=== PATIENT | male | born 1955 | race Caucasian/White ===

== ENCOUNTER 2022-07-23 07:35 | Outpatient (CLI) | payer OTHER | END 2022-07-23 07:36 | disposition home or self-care (01) | LOC: CSHCT 07:35 | PROVIDERS: ATTEND Otolaryngology Plastic Surgery within the Head & Neck | DX: Z85.9 Personal history of malignant neoplasm, unspecified (principal); J38.01 Paralysis of vocal cords and larynx, unilateral; Z98.890 Other specified postprocedural states; J98.4 Other disorders of lung; N28.89 Other specified disorders of kidney and ureter | CPT/HCPCS: 70491; 71260; 82565 ==

== ENCOUNTER 2022-07-27 09:00 | Outpatient (CLI) | payer OTHER | END 2022-07-27 09:01 | disposition home or self-care (01) | LOC: CSHRAD 09:00 | PROVIDERS: ATTEND Otolaryngology Plastic Surgery within the Head & Neck | DX: R13.10 Dysphagia, unspecified (principal); R93.3 Abnormal findings on diagnostic imaging of other parts of digestive tract | CPT/HCPCS: 74220 ==

== ENCOUNTER 2022-08-14 09:43 | Outpatient (CLI) | payer OTHER | END 2022-08-14 09:44 | disposition home or self-care (01) | LOC: CSHRAD 09:43 | PROVIDERS: ATTEND Otolaryngology Plastic Surgery within the Head & Neck | DX: R13.11 Dysphagia, oral phase (principal); J38.01 Paralysis of vocal cords and larynx, unilateral; Z85.9 Personal history of malignant neoplasm, unspecified | CPT/HCPCS: 74230 ==